=== PATIENT | male | born 1970 | race Two or more races ===

== ENCOUNTER 2019-05-26 21:03 | Emergency (ER) | payer OTHER ==
[~2019-05-26] VITALS: Ht 180.3 cm; Wt 123.4 kg
[~2019-05-26 21:03] MED LIST: AMOX1TAB12 PO; KETO10TA2 PO; ORPH100T PO; PERCOCET 10-321 EACH PO; TUSSI-PRES LIQ120 ML PO
[2019-05-27] MEDS ORDERED: DUI500 PO (00:27)
[2019-05-27] MEDS ORDERED: ULTRACET PO (00:27)
== END 2019-05-27 00:39 | disposition home or self-care (01) ==
LOC: ER 21:03
DX: S61.227A Laceration with foreign body of left little finger without damage to nail, initial encounter (principal); W45.8XXA Other foreign body or object entering through skin, initial encounter; Y93.89 Activity, other specified; Y92.89 Other specified places as the place of occurrence of the external cause; Y99.8 Other external cause status

== ENCOUNTER 2019-06-11 17:27 | Emergency (ER) | payer OTHER ==
[~2019-06-11] VITALS: Ht 180.3 cm; Wt 115.2 kg
[~2019-06-11 17:27] MED LIST changes: +DUI500 PO; +ULTRACET PO
== END 2019-06-11 20:15 | disposition home or self-care (01) ==
LOC: ER 17:27
DX: Z48.02 Encounter for removal of sutures (principal)